=== PATIENT | male | born 1995 | race Caucasian/White ===

== ENCOUNTER 2017-11-29 22:05 | Emergency (ER) | payer BC ==
[2017-11-29 22:22] VITALS: RESP 16
[2017-11-30 00:20] VITALS: TEMP 98.1; O2SAT 97
--- NOTE | 2017-11-30 01:06 | EDPHY ---
H & P Stated Complaint: HEMATURIA/LLQ PAIN, LIGHTHEADEDNESS 20 MIN AGO Time Seen by Provider: 11/29/17 23:50 HPI/ROS: HPI The patient presents with hematuria which occurred at about 9:30 p.m. Tonight while studying in the library. He went to the bathroom and noticed that he was passing reddish colored urine with mild dysuria at the end of his stream. As he noticed that he had very mild left lower quadrant abdominal pain with this which is now resolved. He says yesterday he worked out at the gym, did a lot of upper body exercises. He says he has been drinking plenty of fluids. He does have a history in high school of a is right-sided kidney laceration that was manage conservatively. He had recurrent hematuria about 2 years ago which resolved after few days. He does not have any history of ureterolithiasis. He is sexually active.. REVIEW OF SYSTEMS Constitutional: No fever, no chills. Eyes: No discharge. ENT: No sore throat. Cardiovascular: No chest pain, no palpitations. Respiratory: No cough, no shortness of breath. Gastrointestinal: No abdominal pain, no vomiting. Genitourinary: Positive for hematuria. Musculoskeletal: No back pain. Skin: No rashes. Neurological: No headache. PMHx: Right-sided kidney laceration while in high school Soc Hx: College student, sexually active PHYSICAL General Appearance: Alert, no distress Eyes: Pupils equal and round no pallor or injection ENT, Mouth: Mucous membranes moist Respiratory: There are no retractions, lungs are clear to auscultation Cardiovascular: Regular rate and rhythm Gastrointestinal: Abdomen is soft and non-tender, no masses, bowel sounds normal , there is no flank tenderness Neurological: A&O, moves all extremities Skin: Warm and dry, no rashes Musculoskeletal: Neck is supple non tender Extremities: symmetrical, full range of motion Psychiatric: Patient is oriented X 3, there is no agitation Source: Patient Exam Limitations: No limitations - Personal History Current Tetanus Diphtheria and Acellular Pertussis (TDAP): Yes - Medical/Surgical History Hx Asthma: Yes Hx Chronic Respiratory Disease: No Hx Diabetes: No Hx Cardiac Disease: No Hx Renal Disease: No Hx Cirrhosis: No Hx Alcoholism: No Hx HIV/AIDS: No Hx Splenectomy or Spleen Trauma: No Other PMH: LACERATED KIDNEY R KIDNEY, FX VALDEZ WRISTS - Social History Smoking Status: Never smoked Constitutional: Initial Vital Signs Temperature (C) 36.8 C 11/29/17 22:19 Heart Rate 80 11/29/17 22:19 Respiratory Rate 16 11/29/17 22:19 Blood Pressure 140/80 H 11/29/17 22:19 O2 Sat (%) 98 11/29/17 22:19 O2 Delivery Mode Room Air Allergies/Adverse Reactions: No Known Allergies Allergy (Verified 11/29/17 22:19) Home Medications: Medication Instructions Recorded NK [No Known Home Meds] 11/29/17 Medical Decision Making Procedures: Bedside limited abdominal Ultrasound- performed and interpreted by me. Indication: Hematuria Findings: No right-sided hydronephrosis, no left-sided hydronephrosis, no fluid in Morison's pouch Impression: No sonographic evidence of hydronephrosis Differential Diagnosis: This is a 22-year-old male with remote history of right-sided renal laceration who presents with hematuria tonight since 9:30 p.m.. This is associated with mild left lower quadrant pain which has now resolved. On exam, he does not have any flank tenderness or abdominal tenderness and has normal vital signs. His UA was performed prior to my assessment and does show hematuria without any signs of infection. Differential diagnosis includes exercise-induced hematuria, less likely ureterolithiasis, less likely urinary tract infection. In the emergency department, bedside ultrasound was performed demonstrating no hydronephrosis making ureterolithiasis an unlikely cause of his symptoms. UA was sent for culture testing as well as for gonorrhea and chlamydia testing. The patient was advised to monitor his symptoms, avoid heavy exercise, drink plenty of fluids. I have given him follow-up information with the urologist. He will be discharged from the emergency department. - Data Points Laboratory Results: 11/29/17 11/29/17 22:22 22:22 Urine Color YELLOW Urine Appearance MODERATELY TURBID Urine pH 6.0 (5.0-7.5) Ur Specific Hines 1.028 (1.002-1.030) Urine Protein 1+ H (NEGATIVE) Urine Ketones NEGATIVE (NEGATIVE) Urine Blood 3+ H (NEGATIVE) Urine Nitrate NEGATIVE (NEGATIVE) Urine Bilirubin NEGATIVE (NEGATIVE) Urine Urobilinogen NEGATIVE EU EU (0.2-1.0) Ur Leukocyte Esterase NEGATIVE (NEGATIVE) Urine RBC 50-182 /hpf H /hpf (0-3) Urine WBC 1-3 /hpf /hpf (0-3) Ur Epithelial Cells NONE SEEN /lpf /lpf (NONE-1+) Urine Glucose NEGATIVE (NEGATIVE) C.trachomatis RNA (TMA) Pending N.gonorrhoeae RNA (TMA) Pending Departure - Departure Disposition: Home, Routine, Self-Care Clinical Impression: Hematuria Qualifiers: Hematuria type: gross Qualified Code(s): R31.0 - Gross hematuria Condition: Good Instructions: Hematuria (ED) Additional Instructions: Please return to the emergency department if your worse in any way. Please make sure to drink plenty of fluids. Please avoid any vigorous exercise until this improves. I have sent her urine for testing for infection if anything returns positive we will call you. If your hematuria last for more than a day I would recommend that you follow up with the urologist listed below. Referrals: Jeff Bernal MD [Medical Doctor] - As per Instructions
[2017-11-30 01:42] VITALS: BP 125/66; PULSE 77
[2017-11-30 13:47] LABS: GC AMPLIFICATION GENPROBE NEGATIVE (NEGATIVE)
== END 2017-11-30 01:32 | disposition home or self-care (01) ==
DX: R31.0 Gross hematuria (principal); J45.909 Unspecified asthma, uncomplicated